=== PATIENT | female | born 1985 | race Caucasian/White ===

== ENCOUNTER 2017-02-08 05:15 | Inpatient (IN) | payer MEDICAID ==
[~2017-02-08] VITALS: Ht 172.7 cm; Wt 82.4 kg
[2017-02-08] VITALS (14 sets, daily range): BP systolic 97–124; BP diastolic 54–70; PULSE 18–77; RESP 16–20; Ht 172.7 cm; Wt 82.4 kg
[2017-02-08] MEDS ORDERED: LACTATED RINGER'S 1,000 ML IV SCH (06:11)
[2017-02-08 06:18] LABS: ADD SCAN DIFF NO
[2017-02-08 06:30] LABS: BASOPHILS % 0.3 % (0.0-2.0); EOSINOPHILS # 0.2 10^3/ul (0.0-0.5); EOSINOPHILS % 1.6 % (0.0-7.0); HEMATOCRIT 37.8 % (37.0-47.0); HEMOGLOBIN 13.2 g/dl (12.0-16.0); LYMPHOCYTES # 2.5 10^3/ul (0.8-2.9); LYMPHOCYTES % 24.8 % (15.0-51.0); MEAN CORPUSCULAR HEMOGLOBIN 31.2 pg (29.0-33.0); MEAN CORPUSCULAR HGB CONC 34.9 g/dl (32.0-37.0); MEAN CORPUSCULAR VOLUME 89.4 fl (82.0-101.0); MEAN PLATELET VOLUME 10.5 fl (7.4-10.4); MONOCYTE # 0.7 10^3/ul (0.3-0.9); MONOCYTES % 7.3 % (0.0-11.0); NEUTROPHIL # 6.5 10^3/ul (1.6-7.5); NEUTROPHILS % 64.7 % (39.0-77.0); PLATELET COUNT 164 10^3/UL (140-415); RED BLOOD COUNT 4.23 10^6/ul (4.20-5.40); RED CELL DISTRIBUTION WIDTH 13.6 % (11.5-14.5)
[2017-02-08] MEDS ORDERED: OXYTOCIN 30 UNITS/LR 500 ML IV PRN ×2 (06:30→12:30)
[2017-02-08] MEDS ORDERED: OXYTOCIN 30 UNITS/LR 500 ML IV SCH (06:30)
[2017-02-08] MEDS ORDERED: CEFAZOLIN 2 GM/50 ML (PMX) 50 ML IV SCH (06:30)
[2017-02-08] MEDS ORDERED: MISOPROSTOL 200 MCG TAB PR PRN ×2 (06:30→12:30)
[2017-02-08] MEDS ORDERED: METHYLERGONOVINE 0.2 MG INJ IM PRN ×2 (06:30→12:30)
[2017-02-08] MEDS ORDERED: CARBOPROST 250 MCG INJ IM PRN ×2 (06:30→12:30)
[2017-02-08 06:42] LABS: INR 0.97; PARTIAL THROMBOPLASTIN TIME 26.7 Sec (25.0-35.0); PROTIME 12.9 Sec (12.2-14.2)
[2017-02-08] MEDS ORDERED: PHENYLephrine (100 MCG/ML) 5ML SYG ONE ×2 (07:53→08:31)
[2017-02-08] MEDS ORDERED: ONDANSETRON 4 MG INJ ONE (07:53)
[2017-02-08] MEDS ORDERED: morphine SULFATE/PF (10 MG/10 ML) INJ ONE (07:53)
[2017-02-08] MEDS ORDERED: OXYTOCIN 10 UNIT INJ ONE (07:53)
--- NOTE | 2017-02-08 09:16 | HP ---
Date/Time of Note Date/Time of Note DATE: 02/08/17 TIME: 09:06 OB - History Hx of Present Free Text/Dictation 30 years old female 3 para 1 SAB 1 living child to [facility] of February 15, 2017 admitted to [facility] at 39 weeks gestation with a history of previous and request for tubal ligation at the time of the surgery being prepared to undergo repeat section bilateral tubal ligation patient has been counseled regarding the failure rate of tubal ligation increased risk of ectopic and future failure to conceive also complication of of surgery including but not limited to bowel bladder injury infection wound hematoma and hemorrhage, she is willing to proceed with the operation Estimated Due Date: Feb 15, 2017 : 3 Para: 2 Spontaneous : 1 Care: Good Care Ultrasounds: Normal mid trimester US Obstetrical Complications: None Medical Complications: None Past Family/Social History * Past Medical, Surgical, Family and Obstetric Histories reviewed from chart. Rubella: immune RPR/VDRL: Negative GBS Status: Negative HBsAG: Negative OB Admission Exam Vital Signs Vital Signs Vital Signs Date Time Temp Pulse Resp B/P Pulse Ox O2 Delivery O2 Flow Rate FiO2 02/08/17 06:13 98.2 77 16 115/70 Room Air Physical Exam HEENT: WNL Heart: Rhythm Normal Lungs: Clear, Equal Abdomen: WNL Extremities: Normal Reflexes: Normal Cervical Dilatation: None Effacement: 0% Station: -1 Membranes: Intact Heart Rate: 130's Accelerations: Accelerations Present Decelerations: No Decelerations Varibility: Absent Contractions on Admission: None Last 72 hours Lab Results CBC & BMP 02/08/17 05:53 OB Assessment/Plan Reason for admission: other (Repeat at 39 weeks) Plan: Section, Other (Repeat bilateral tubal ligation) DIRK QUARLES MD Feb 08, 2017 09:16
[2017-02-08] MEDS ORDERED: DIPHENHYDRAMINE 50 MG INJ IV PRN (10:30)
[2017-02-08] MEDS ORDERED: NALOXONE (0.4 MG/ML) INJ IV PRN (10:30)
[2017-02-08] MEDS ORDERED: morphine 2 MG INJ IV PRN (10:30)
[2017-02-08] MEDS ORDERED: ONDANSETRON 4 MG INJ IV PRN (10:30)
[2017-02-08] MEDS: KETOROLAC 30 MG INJ IV PRN ×2 (10:53→17:32)
--- NOTE | 2017-02-08 10:53 | OPR ---
DATE OF OPERATION: 02/08/2017 PREOPERATIVE DIAGNOSES: 1. Intrauterine at 39 weeks' gestation. 2. History of previous section. 3. Request for bilateral tubal ligation. POSTOPERATIVE DIAGNOSES: 1. Intrauterine at 39 weeks' gestation. 2. History of previous section. 3. Request for bilateral tubal ligation. PROCEDURE PERFORMED: 1. Repeat transverse low cervical section. 2. Bilateral tubal ligation, Margarita method. SURGEON: Dirk Calderón MD RADIO ANTENNA INSTALLER: Kamla Long MD ANESTHESIA: Spinal. ANESTHESIOLOGIST: Justice Schwartz MD FINDINGS: Live baby boy with 9 and 9. DETAILS OF THE PROCEDURE: Under satisfactory spinal anesthesia, the patient was prepped and draped and placed in supine position, tilted to the left. Pfannenstiel incision was made. Old scar was re moved. Incision carried through the subcutaneous tissue. Bleeders brought under control with elect rocautery. Fascia incised to the length of the incision. Rectus muscle divided in midline. Perito neum exposed, entered through a transverse incision. Exploration of abdomen: Gravid uterus, normal -appearing tubes and ovaries, extremely thinned out lower segment of the uterus to the thickness of 1 to 2 mm. Bladder flap was developed. Transverse incision was made in the lower segment of the ut erus. Amniotic sac ruptured. Clear amniotic fluid noted. [facility] Nasal, oropharyngeal suction was performed. Cord clamped after stopped pulsation. Baby handed to the team for immediate attention. The patient received 20 units of Pitocin. Pl acenta delivered manually intact. Uterine cavity cleaned with wet sponge and drainage established. Uterus closed in 2 layers using Monocryl #1 in continuous fashion. Bilateral tubal ligation performed by identifying the ampullar section of the right fallopian tube, which was grasped by a Mukund. A loop was made and suture material used #0 plain catgut was reinfo rced with the same suture material. The top of the loop 3/4 inch was excised. The cut end of the t ube cauterized and the specimen submitted to pathology. The same procedure performed for the opposi te side. Peritoneal cavity irrigated with warm saline. Sponge, needle and instrument reported to be correct. Abdominal peritoneum closed with 2-0 chromic catgut continuously. Rectus muscle approximated with 3 interrupted 2-0 chromic catgut. Fascia closed with #1 PDS in a continuous fashion. Subcutaneous tissue approximated with 2-0 chromic catgut in interrupted fashion. The skin closed with brendon. Estimated blood loss 600 mL. Urine bag contained 200 mL of clear urine. The patient tolerated pro cedure well, transferred to recovery room in a good condition. Dictated By: DIRK DIAZ/CARI Conf#: [id number] DID#: [id number]
[2017-02-08] MEDS ORDERED: OXYCODONE/ACETAMINOPHEN (5/325) TAB PO PRN (12:30)
[2017-02-08] MEDS ORDERED: CEFAZOLIN 1 GM/50 ML (PMX) 50 ML IVPB ONE (12:30)
[2017-02-08] MEDS ORDERED: ACETAMINOPHEN/CODEINE #3 TAB PO PRN ×2 (12:30)
[2017-02-08] MEDS ORDERED: LANOLIN 7 GM TUBE TOP PRN (12:30)
[2017-02-08] MEDS: OXYTOCIN 30 UNITS/LR 500 ML IV SCH ×3 (12:46→20:45)
[2017-02-09] VITALS: BP 114/60; PULSE 77; RESP 16
[2017-02-09] MEDS: OXYTOCIN 30 UNITS/LR 500 ML IV SCH ×3 (00:47→20:22)
[2017-02-09 04:00] VITALS: BP 102/59; PULSE 80; RESP 18
[2017-02-09] MEDS: IBUPROFEN 600 MG TAB PO SCH ×3 (06:00→17:34)
[2017-02-09 07:53] VITALS: BP 111/57; PULSE 79; RESP 18
[2017-02-09] MEDS: KETOROLAC 30 MG INJ IV PRN (07:53)
[2017-02-09 10:13] LABS: ADD SCAN DIFF NO
[2017-02-09 10:25] LABS: BASOPHILS % 0.2 % (0.0-2.0); EOSINOPHILS % 0.3 % (0.0-7.0); HEMATOCRIT 34.7 % (37.0-47.0); HEMOGLOBIN 11.8 g/dl (12.0-16.0); LYMPHOCYTES # 1.2 10^3/ul (0.8-2.9); LYMPHOCYTES % 11.9 % (15.0-51.0); MEAN CORPUSCULAR HEMOGLOBIN 30.7 pg (29.0-33.0); MEAN CORPUSCULAR VOLUME 90.4 fl (82.0-101.0); MEAN PLATELET VOLUME 10.6 fl (7.4-10.4); MONOCYTE # 0.6 10^3/ul (0.3-0.9); MONOCYTES % 5.4 % (0.0-11.0); NEUTROPHIL # 8.4 10^3/ul (1.6-7.5); NEUTROPHILS % 81.2 % (39.0-77.0); PLATELET COUNT 126 10^3/UL (140-415); RED BLOOD COUNT 3.84 10^6/ul (4.20-5.40); RED CELL DISTRIBUTION WIDTH 13.8 % (11.5-14.5); WHITE BLOOD COUNT 10.3 10^3/ul (4.8-10.8)
--- NOTE | 2017-02-09 10:28 | PN ---
Date/Time of Note Date/Time of Note DATE: 02/09/17 TIME: 10:26 OB Subjective Subjective Subjective Post day 1 Afebrile vital signs stable abdomen soft incision dry bowel sounds weak but present extremities normal ambulation recommended Current Medications Medications (Trade) Dose Ordered Sig/Millicent Route PRN Reason Start Time Stop Time Status Last Admin Dose Admin Lactated Ringer's 1,000 ml @ 125 mls/hr Q8H IV 02/08/17 06:11 02/08/17 11:14 DC 02/08/17 06:16 Cefazolin Sodium/ Dextrose 50 ml @ 100 mls/hr ONCE IV 02/08/17 06:30 02/08/17 11:14 DC Oxytocin/Lactated Ringer's 500 ml @ 125 mls/hr ONCE IV 02/08/17 06:30 02/08/17 11:14 DC 02/08/17 11:24 Oxytocin/Lactated Ringer's 500 ml @ 0 mls/hr ONCE PRN IV For Hemorrhage Management 02/08/17 06:30 02/08/17 11:15 DC Methylergonovine Maleate (Methergine) 0.2 mg ONCE PRN IM VAGINAL BLEEDING 02/08/17 06:30 02/08/17 11:15 DC Carboprost Tromethamine (Hemabate) 250 mcg ONCE PRN IM VAGINAL BLEEDING 02/08/17 06:30 02/08/17 11:15 DC Misoprostol (Cytotec) 1,000 mcg ONCE PRN [place] VAGINAL BLEEDING 02/08/17 06:30 02/08/17 11:15 DC Morphine Sulfate (Duramorph) 10 mg STK-MED ONCE .ROUTE 02/08/17 07:53 02/08/17 07:54 DC Phenylephrine HCl (Benton-Synephrine Inj Syg) 500 mcg STK-MED ONCE .ROUTE 02/08/17 07:53 02/08/17 07:54 DC Ondansetron HCl (Zofran Inj) 4 mg STK-MED ONCE .ROUTE 02/08/17 07:53 02/08/17 07:54 DC Oxytocin (Oxytocin) 10 units STK-MED ONCE .ROUTE 02/08/17 07:53 02/08/17 07:54 DC Phenylephrine HCl (Benton-Synephrine Inj Syg) 500 mcg STK-MED ONCE .ROUTE 02/08/17 08:31 02/08/17 08:32 DC Naloxone HCl (Narcan) 0.1 mg Q2M PRN IV FOR RESP RATE 8 OR LESS 02/08/17 10:30 02/09/17 10:29 Ketorolac Tromethamine (Toradol) 30 mg Q6H PRN IV PAIN 02/08/17 10:30 02/09/17 10:29 02/09/17 07:53 Morphine Sulfate (morphine) 2 mg Q3H PRN IV PAIN LEVEL 1-5 02/08/17 10:30 02/09/17 10:29 Diphenhydramine HCl (Benadryl) 25 mg Q6H PRN IV ITCHING 02/08/17 10:30 02/09/17 10:29 Ondansetron HCl (Zofran Inj) 4 mg Q6H PRN IV NAUSEA AND/OR VOMITING 02/08/17 10:30 02/09/17 10:29 02/08/17 16:04 Miscellaneous Information (* Miscellaneous Pharmacy Order) Duramorph: 0.2 mg Spi... GIVEN XX 02/08/17 10:30 02/08/17 11:14 DC Acetaminophen/ Codeine Phosphate (Tylenol No.3) 1 tab Q4H PRN PO PAIN LEVEL 4-6 02/08/17 12:30 Acetaminophen/ Codeine Phosphate (Tylenol No.3) 2 tab Q4H PRN PO PAIN LEVEL 7-10 02/08/17 12:30 Oxycodone/ Acetaminophen (Percocet (5/ 325)) 1 tab Q4H PRN PO PAIN LEVEL 4-6 02/08/17 12:30 Oxycodone/ Acetaminophen (Percocet (5/ 325)) 2 tab Q4H PRN PO PAIN LEVEL 7-10 02/08/17 12:30 Ibuprofen (Motrin) 600 mg Q6 PO 02/09/17 06:00 Simethicone (Mylicon) 160 mg Q8H PRN PO DISTENSION/GAS/BLOATING 02/08/17 12:30 Senna/Docusate Sodium (Senokot-S) 1 tab BID PO 02/09/17 09:00 Lanolin (Vnx-A-Vgqqlb) 1 applic BEDSIDE MEDICATION PRN TOP BEDSIDE FOR LEA TO NIPPLES 02/08/17 12:30 02/08/17 12:46 Diphtheria/ Tetanus/Acell Pertussis 0.5 ml 0.5 ml ONCE ONCE IM* 02/11/17 09:00 02/11/17 09:01 Oxytocin/Lactated Ringer's 500 ml @ 0 mls/hr ONCE PRN IV For Hemorrhage Management 02/08/17 12:30 Methylergonovine Maleate (Methergine) 0.2 mg ONCE PRN IM VAGINAL BLEEDING 02/08/17 12:30 Carboprost Tromethamine (Hemabate) 250 mcg ONCE PRN IM VAGINAL BLEEDING 02/08/17 12:30 Misoprostol 1000 mcg 1,000 mcg ONCE PRN [place] VAGINAL BLEEDING 02/08/17 12:30 Cefazolin Sodium 50 ml @ 100 mls/hr ONCE ONCE IVPB 02/08/17 12:30 02/08/17 12:59 DC 02/08/17 16:04 Oxytocin/Lactated Ringer's 500 ml @ 125 mls/hr Q4H IV 02/08/17 12:22 02/09/17 05:06 DIRK QUARLES MD Feb 09, 2017 10:28
[2017-02-09] MEDS: SENNA/DOCUSATE NA (8.6MG/50MG) TAB PO SCH ×2 (10:36→21:42)
[2017-02-09] MEDS: OXYCODONE/ACETAMINOPHEN (5/325) TAB PO PRN (14:55)
[2017-02-09 15:00] VITALS: BP 128/76; PULSE 95; RESP 19
[2017-02-09 20:00] VITALS: BP 112/74; PULSE 74; RESP 20
[2017-02-10] MEDS: IBUPROFEN 600 MG TAB PO SCH ×4 (00:08→18:10)
[2017-02-10] MEDS: OXYTOCIN 30 UNITS/LR 500 ML IV SCH ×5 (00:22→16:22)
[2017-02-10 04:00] VITALS: BP 112/68; PULSE 70; RESP 18
[2017-02-10 07:45] VITALS: BP 127/70; PULSE 79; RESP 20
[2017-02-10] MEDS: SENNA/DOCUSATE NA (8.6MG/50MG) TAB PO SCH ×2 (09:09→21:24)
[2017-02-10 12:00] VITALS: BP 132/44; PULSE 86; RESP 20
[2017-02-10 16:00] VITALS: BP 115/62; PULSE 89; RESP 20
[2017-02-10 19:50] VITALS: BP 129/75; PULSE 78; RESP 18
[2017-02-11] MEDS: IBUPROFEN 600 MG TAB PO SCH ×3 (00:11→12:19)
[2017-02-11 03:57] VITALS: PULSE 132; RESP 18
[2017-02-11 08:00] VITALS: BP 118/68; PULSE 67; RESP 18
[2017-02-11] MEDS: SENNA/DOCUSATE NA (8.6MG/50MG) TAB PO SCH (08:41)
[2017-02-11] MEDS ORDERED: DIPHTH/TET/ACEL PERTUSS (ADULT) 0.5 ML VIAL IM* ONE (09:00)
[2017-02-11] MEDS: OXYCODONE/ACETAMINOPHEN (5/325) TAB PO PRN (10:28)
--- NOTE | 2017-02-11 12:02 | PN ---
Date/Time of Note Date/Time of Note DATE: 02/11/17 TIME: 12:00 OB Subjective Subjective Subjective Patient without complaints. Ready to go home. OB Objective Objective Objective AFVSS Gen: NAD Abd: I-C/D/I OB Assessment/Plan Other Assessment: POD3 Other plan: Discharge home. Pelvic rest, no heavy lifting. Rx for pain meds given. F/u in clinic next week for staple removal and 4-6 weeks for care. GIGI SCHWARTZ Feb 11, 2017 12:02
== END 2017-02-11 12:40 | disposition home or self-care (01) | DRG 766 ==
LOC: L-D 05:15 → PP1 11:48
PROVIDERS: ADMIT Obstetrics & Gynecology; ATTEND Obstetrics & Gynecology
PROC: 0UB70ZZ Excision of Bilateral Fallopian Tubes, Open Approach (ICD-10-PCS; 2017-02-08)
PROC: 10D00Z1 Extraction of Products of Conception, Low, Open Approach (ICD-10-PCS; principal; 2017-02-08 07:30)
DX: O34.211 Maternal care for low transverse scar from previous cesarean delivery (principal); Z37.0 Single live birth; Z3A.39 39 weeks gestation of pregnancy
CPT/HCPCS: 85025; 85610; 85730; 86592; 86850; 86900; 86901; 88302; 90715; 94760; 99464; J0690; J1885; J2274; J2370; J2405; J2590; J7120